=== PATIENT | male | born 2000 | race Caucasian/White ===

== ENCOUNTER 2022-04-02 14:43 | Emergency (ER) | payer OTHER, MEDICAID, SELFPAY ==
[2022-04-02 15:13] VITALS: BP 164/97; PULSE 95; RESP 16; TEMP 36.5; O2SAT 98; BMI 32.9
--- NOTE | 2022-04-02 15:23 | DI.RAD.S_ITS ---
PROCEDURE: XR ACUTE ABDOMEN SERIES INDICATIONS: abd pain TECHNIQUE: One view chest and two views of the abdomen were acquired. COMPARISON: None. FINDINGS: Surgical changes and devices: None. Chest: Lungs are clear. Heart size is normal. No pleural effusions. No pneumoperitoneum. Abdomen: Bowel gas pattern is normal. No suspicious calcifications. Visualized solid organ contours appear normal. Bones: No suspicious bony lesions. IMPRESSION: A nonobstructive bowel gas pattern is seen. If clinically appropriate, please consider a repeat plain film study or a dedicated CT of the abdomen and pelvis, if the patient's symptoms persist or worsen. Dictated by: Pedro Petty M.D. on 04/02/2022 at 14:50 Approved by: Pedro Petty M.D. on 04/02/2022 at 14:50
[2022-04-02] MEDS: ONDANSETRON 4 MG/2 ML INJ IV (15:30)
[2022-04-02] MEDS: SODIUM CHLORIDE 0.9% 1,000 ML 1000 ML IV (15:31)
[2022-04-02 15:47] LABS: Alanine Aminotransferase 83 IU/L (<50); Albumin 4.8 g/dL (3.5-5.0); Albumin Globulin Ratio 1.6 (1.0-2.8); Alkaline Phosphatase 50 U/L (38-126); Aspartate Aminotransferase 50 IU/L (17-59); BUN Creatinine Ratio 8.3 (6-22); Bilirubin Total 1.3 mg/dL (0.2-1.3); Blood Urea Nitrogen 8 mg/dL (9-20); Calcium 9.3 mg/dL (8.4-10.2); Carbon Dioxide 29 mmol/L (22-32); Chloride 100 mmol/L (98-107); Estimated Glomerular Filt Rate > 60 mL/min (>60); Glucose 100 mg/dL (70-100); HEMOLYSIS 26 (0-50); Lipase 119 U/L (23-300); Potassium 3.5 mmol/L (3.4-5.1); Sodium 141 mmol/L (137-145); Total Protein 7.8 g/dL (6.3-8.2)
[2022-04-02 15:49] LABS: Add Manual Diff / Slide Review NO; Basophils Absolute Auto 100 /uL (0-100); Basophils Percent Auto 0.6 % (0-2); Eosinophils Absolute Auto 100 /uL (0-450); Eosinophils Percent Auto 0.9 % (2-4); Hematocrit 46.5 % (41-53); Lymphocytes Absolute Auto 1700 /uL (1100-4500); Lymphocytes Percent Auto 18.7 % (25-40); Mean Corpuscular HGB Conc 34.5 % (30-36); Mean Corpuscular Volume 84.1 fL (80-100); Monocytes Absolute Auto 500 /uL (0-900); Monocytes Percent Auto 5.3 % (3-14); Neutrophils Absolute Auto 6600 /uL (1500-7000); Neutrophils Percent Auto 74.5 % (50-75); Platelet Count 227 X10^3/uL (150-400); Red Blood Cell Count 5.53 X10^6/uL (4.5-5.9); Red Cell Distribution Width 12.9 % (11.6-14.8); White Blood Cell Count 8.9 X10^3/uL (4.5-11.0)
[2022-04-02 15:55] VITALS: BP 150/99; PULSE 81; PULSE 88; RESP 16; O2SAT 100; O2SAT 99
[2022-04-02 16:00] VITALS: BP 136/97; PULSE 66; O2SAT 100
--- NOTE | 2022-04-02 16:13 | DI.US.S_ITS ---
PROCEDURE: US RENAL COMPLETE INDICATIONS: LEFT FLANK PAIN TECHNIQUE: Real-time scanning was performed of the kidneys and bladder, with image documentation. COMPARISON: [facility], CR, XR ACUTE ABDOMEN SERIES, 04/02/2022, 15:24. FINDINGS: Kidneys: Kidneys are normal in size. Right kidney measures 11.1 cm long; left kidney measures 11.9 cm long. Right renal cortical thickness is 1.8 cm; left renal cortical thickness is 1.9 cm. Renal cortical echotexture is normal. No hydronephrosis or nephrolithiasis. No suspicious solid mass lesions. Bladder: Pre-void bladder volume is 376 mL. Post-void residual is 0 mL. Pre-void images demonstrate no intraluminal masses or stones. On pre-void images, both ureteral jets are noted with color Doppler interrogation. (Of note, ureteral jets may not be detectable in up to 25% of cases due to insufficient differences in specific gravity between ureteral and bladder urine). Miscellaneous: No free pelvic fluid. IMPRESSION: Negative for hydronephrosis. Normal appearing kidneys by ultrasound. Dictated by: Pedro Petty M.D. on 04/02/2022 at 16:13 Approved by: Pedro Petty M.D. on 04/02/2022 at 16:13
--- NOTE | 2022-04-02 16:15 | ED.ABDPAIN ---
HPI - Abdominal Pain <PASCUAL Corral - Last Filed: 04/02/22 17:41> General Chief Complaint: Abdominal Pain Stated Complaint: Low back pain, nausea, vomiting Time Seen by Provider: 04/02/22 15:58 Source: patient Mode of arrival: Ambulatory History of Present Illness HPI narrative: 21-year-old male was brought to the emergency department with left flank pain on and off x3 days. Patient primarily sits in a huong chair at home and plays video games, while drinking energy drinks. Patient was experiencing significant left flank pain 3 days ago and treated himself with a ibuprofen. Patient reports he felt better on the following morning. Patient reports that when he woke up the following day, he had the same stabbing pain in his left flank. Patient used a lidocaine patch and took more ibuprofen. Patient's symptoms were severe enough this morning that he went into the [facility] walk-in clinic where he was given an injection of Toradol and sent to this emergency department. Patient has vomited 2-3 times over last few days because of the pain. No personal history of kidney stones. Patient reports that pain was 7/10 before he received the Toradol injection and is now 1/10. Related Data Previous Rx's Medication Instructions Recorded tamsulosin 0.4 mg capsule (Flomax) 0.4 mg PO DAILY 7 days #7 caps 04/02/22 Allergies Allergy/AdvReac Type Severity Reaction Status Date / Time nut - unspecified Allergy Gastrointestinal Verified 04/02/22 15:13 Upset Review of Systems <PASCUAL Corral - Last Filed: 04/02/22 17:41> Review of Systems Narrative: Narrative: See HPI. GENERAL: Denies chills, fatigue, fever, sweats. HEENT: Denies sinus pain, ear pain, sore throat, difficulty swallowing, dizziness. RESPIRATORY: Denies dyspnea, cough, wheezing, sputum. CARDIOVASCULAR: Denies chest pain, palpitations, edema. GASTROINTESTINAL: Denies nausea, vomiting, abdominal pain, diarrhea, constipation. : Denies dysuria, frequency, incontinence, hematuria, urinary retention, loss of control of bowel or bladder.. Endorses left flank pain. MSK: Denies weakness, joint pain, or bony pain. SKIN: Denies rash, skin lesions, or pruritis. NEUROLOGIC: Denies weakness, dizziness, headache, numbness, confusion. PSYCHIATRIC: No concerning psychosocial issues. Patient History <PASCUAL Corral - Last Filed: 04/02/22 17:41> Social History Smoking Status: Never smoker Smoking Status: Never smoker alcohol intake frequency: holidays/special occasions only Substance Use Type: does not use Exam <PASCUAL Corral - Last Filed: 04/02/22 17:41> Narrative Exam Narrative: Exam Narrative: GENERAL: This is a well-nourished, well-developed patient, in no acute distress. HEAD: Atraumatic. Normocephalic. CARDIOVASCULAR: Regular rate and rhythm without murmurs, peripheral pulses intact, cap refill <2 sec. RESPIRATORY: Breath sounds equal and clear bilaterally. No wheezes, rales, or rhonchi. No cough. No increased respiratory effort. No accessory muscle use. GASTROINTESTINAL: Abdomen soft, non-tender, nondistended without guarding or rebound. No suprapubic pain. MSK: Moves all extremities. Normal range of motion, no clubbing or edema. Neurovascularly intact. Mild left lower back discomfort. No CVA tenderness. NEURO: A&O x 3. SKIN: Warm, dry, no rashes or lesions noted. BACK waterproof coating machine tender but free of any obvious external abnormalities. There is no asymmetry, swelling, bruising or wound. There is no paraspinal tenderness or CVA tenderness. SI joints nontender. No pain over spinous processes. No symptoms of cauda equina such as saddle anesthesia. Sensation is grossly intact. ROM is full and without pain. SLE is negative bilaterally. Gait is normal. hesia. Initial Vital Signs Initial Vital Signs: Vital Signs Temperature 97.7 F 04/02/22 15:13 Pulse Rate 95 H 04/02/22 15:13 Respiratory Rate 16 04/02/22 15:13 Blood Pressure 164/97 H 04/02/22 15:13 Pulse Oximetry 98 04/02/22 15:13 Oxygen Delivery Method 04/02/22 15:13 Reviewed <Yaima Stephen DO - Last Filed: 04/03/22 18:39> Initial Vital Signs Initial Vital Signs: Vital Signs Temperature 97.7 F 04/02/22 15:13 Pulse Rate 95 H 04/02/22 15:13 Respiratory Rate 16 04/02/22 15:13 Blood Pressure 164/97 H 04/02/22 15:13 Pulse Oximetry 98 04/02/22 15:13 Oxygen Delivery Method 04/02/22 15:13 Course <PASCUAL Corral - Last Filed: 04/02/22 17:41> Orders Ordered: Discontinued Medications Sodium Chloride (Normal Saline 0.9%) 1,000 mls @ 1,000 mls/hr IV BOLUS ONE Stop: 04/02/22 16:22 Last Infusion: 04/02/22 16:43 Dose: 0 mls/hr Documented By: Admin: 04/02/22 15:31 Dose: 1,000 mls/hr Documented By: JENY Ondansetron HCl (Ondansetron 4 Mg/2 Ml Inj) 4 mg IV NOW PRN PRN Reason: Nausea And Vomiting Last Admin: 04/02/22 15:30 Dose: 4 mg Documented By: JENY Ondansetron HCl (Ondansetron 4 Mg Odt) 4 mg PO NOW PRN PRN Reason: Nausea And Vomiting Vital Signs Vital signs: Vital Signs - 8 hr 04/02/22 15:13 04/02/22 15:55 04/02/22 15:55 Temperature 97.7 F Pulse Rate 95 H 88 81 Respiratory Rate 16 16 Blood Pressure 164/97 H 150/99 H Pulse Oximetry 98 99 100 Oxygen Delivery Method Room Air Room Air 04/02/22 16:00 04/02/22 16:00 04/02/22 16:31 Temperature Pulse Rate 66 77 Respiratory Rate Blood Pressure 136/97 H Pulse Oximetry 100 97 Oxygen Delivery Method Room Air Room Air 04/02/22 16:31 04/02/22 17:00 Temperature Pulse Rate 71 Respiratory Rate Blood Pressure 140/91 H Pulse Oximetry 97 Oxygen Delivery Method Room Air <Yaima Stephen DO - Last Filed: 04/03/22 18:39> Orders Ordered: Discontinued Medications Sodium Chloride (Normal Saline 0.9%) 1,000 mls @ 1,000 mls/hr IV BOLUS ONE Stop: 04/02/22 16:22 Last Infusion: 04/02/22 16:43 Dose: 0 mls/hr Documented By: Admin: 04/02/22 15:31 Dose: 1,000 mls/hr Documented By: RL Ondansetron HCl (Ondansetron 4 Mg/2 Ml Inj) 4 mg IV NOW PRN PRN Reason: Nausea And Vomiting Last Admin: 04/02/22 15:30 Dose: 4 mg Documented By: JENY Ondansetron HCl (Ondansetron 4 Mg Odt) 4 mg PO NOW PRN PRN Reason: Nausea And Vomiting Vital Signs Vital signs: Vital Signs - 8 hr 04/02/22 15:13 04/02/22 15:55 04/02/22 15:55 Temperature 97.7 F Pulse Rate 95 H 88 81 Respiratory Rate 16 16 Blood Pressure 164/97 H 150/99 H Pulse Oximetry 98 99 100 Oxygen Delivery Method Room Air Room Air 04/02/22 16:00 04/02/22 16:00 04/02/22 16:31 Temperature Pulse Rate 66 77 Respiratory Rate Blood Pressure 136/97 H Pulse Oximetry 100 97 Oxygen Delivery Method Room Air Room Air 04/02/22 16:31 04/02/22 17:00 Temperature Pulse Rate 71 Respiratory Rate Blood Pressure 140/91 H Pulse Oximetry 97 Oxygen Delivery Method Room Air MDM - Abdominal Pain <PASCUAL Corral - Last Filed: 04/02/22 17:41> Differential Diagnosis Differential diagnosis: Likely calculus of kidney and other (Low back strain) Lab Data 04/02/22 15:25 04/02/22 15:25 Labs: Lab Results 04/02/22 04/02/22 04/02/22 Range/Units 15:25 15:25 16:32 WBC 8.9 (4.5-11.0) X10^3/uL RBC 5.53 (4.5-5.9) X10^6/uL Hgb 16.0 (13.5-17.5) g/dL Hct 46.5 (41-53) % MCV 84.1 (80-100) fL MCH 29.0 (26-34) PG MCHC 34.5 (30-36) % RDW 12.9 (11.6-14.8) % Plt Count 227 (150-400) X10^3/uL Neut % (Auto) 74.5 (50-75) % Lymph % (Auto) 18.7 L (25-40) % Heard % (Auto) 5.3 (3-14) % Eos % (Auto) 0.9 L (2-4) % Baso % (Auto) 0.6 (0-2) % Neut # (Auto) 6600 (3212-6491) /uL Lymph # (Auto) 1700 (8620-0674) /uL Heard # (Auto) 500 (0-900) /uL Eos # (Auto) 100 (0-450) /uL Baso # (Auto) 100 (0-100) /uL Sodium 141 (137-145) mmol/L Potassium 3.5 (3.4-5.1) mmol/L Chloride 100 (98-107) mmol/L Carbon Dioxide 29 (22-32) mmol/L BUN 8 L (9-20) mg/dL Creatinine 0.96 (0.66-1.25) mg/dL Estimated GFR > 60 (>60) mL/min BUN/Creatinine Ratio 8.3 (6-22) Glucose 100 (70-100) mg/dL Calcium 9.3 (8.4-10.2) mg/dL Total Bilirubin 1.3 (0.2-1.3) mg/dL AST 50 (17-59) IU/L ALT 83 H (<50) IU/L Alkaline Phosphatase 50 (38-126) U/L Total Protein 7.8 (6.3-8.2) g/dL Albumin 4.8 (3.5-5.0) g/dL Globulin 3.0 (1.7-4.1) g/dL Albumin/Globulin Ratio 1.6 (1.0-2.8) Lipase 119 (23-300) U/L Urine RBC 5-10/hpf H (0-5/HPF) Urine WBC 0-1/hpf (0-5/HPF) Ur Squamous Epith Cells 0-1 /hpf (0-5/HPF) Urine Bacteria None seen (None) Ur Culture Indicated? Cult not indicated Point of care testing: Urine Dip Bedside Urine Glucose Negative Bedside Urine Bilirubin - Negative Bedside Urine Ketone - Negative Urine Specific [place] 1.010 Bedside Urine Occult Blood +++ Bedside Urine pH 7.0 Bedside Urine Protein - Negative Bedside Urine Urobilinogen - Negative Bedside Urine Nitrite - Negative Bedside Urine Leukocytes - Negative Esterase Imaging Data Abdominal x-ray: Radiologist's Impression: [address] [address] XRay Report Signed Patient: Abisai Peng MR#: [id number] : 2000 Acct:[id number] Age/Sex: 21 / M Date of Service: 04/02/22 Loc: ED Accession Number: [id number] ?? Procedure: XR acute abdomen series Ordering Provider: Yaima Stephen D.O. PROCEDURE:? XR ACUTE ABDOMEN SERIES ? INDICATIONS:? abd pain ? TECHNIQUE:? One view chest and two views of the abdomen were acquired.? ? COMPARISON:? None. ? FINDINGS:? ? Surgical changes and devices:? None.? ? Chest:? Lungs are clear.? Heart size is normal.? No pleural effusions.? No pneumoperitoneum.? ? Abdomen:? Bowel gas pattern is normal.? No suspicious calcifications.? Visualized solid organ contours appear normal.? ? Bones:? No suspicious bony lesions.? IMPRESSION:? A nonobstructive bowel gas pattern is seen. ? If clinically appropriate, please consider a repeat plain film study or a dedicated CT of the abdomen and pelvis, if the patient's symptoms persist or worsen. ? ? ? Dictated by: Pedro Petty M.D. on 04/02/2022 at 14:50 ? ? Approved by: Pedro Petty M.D. on 04/02/2022 at 14:50 ? US Renal: Radiologist's Impression: [place] [address] Ultrasound Report Signed Patient: Abisai Peng MR#: [id number] : 2000 Acct:[id number] Age/Sex: 21 / M Date of Service: 04/02/22 Loc: ED Accession Number: [id number] ?? Procedure: US renal complete Ordering Provider: Matthew King PROCEDURE:? US RENAL COMPLETE ? INDICATIONS:? LEFT FLANK PAIN ? TECHNIQUE:? Real-time scanning was performed of the kidneys and bladder, with image documentation.? ? COMPARISON:? [facility], CR, XR ACUTE ABDOMEN SERIES, 04/02/2022, 15:24. ? FINDINGS:? ? Kidneys:? Kidneys are normal in size.? Right kidney measures 11.1 cm long; left kidney measures 11.9 cm long.? Right renal cortical thickness is 1.8 cm; left renal cortical thickness is 1.9 cm.? Renal cortical echotexture is normal.? No hydronephrosis or nephrolithiasis.? No suspicious solid mass lesions.? ? Bladder:? Pre-void bladder volume is 376 mL.? Post-void residual is 0 mL.? Pre-void images demonstrate no intraluminal masses or stones.? On pre-void images, both ureteral jets are noted with color Doppler interrogation.? (Of note, ureteral jets may not be detectable in up to 25% of cases due to insufficient differences in specific gravity between ureteral and bladder urine).? ? Miscellaneous:? No free pelvic fluid.? ? IMPRESSION:? Negative for hydronephrosis. ? Normal appearing kidneys by ultrasound. ? ? Dictated by: Pedro Petty M.D. on 04/02/2022 at 16:13 ? ? Approved by: Pedro Petty M.D. on 04/02/2022 at 16:13 ? MDM Narrative Medical decision making narrative: 21-year-old male was brought to the emergency department with left lower back pain. Assessment was encouraging. Abdominal x-ray was normal. Renal ultrasound revealed no stones or hydronephrosis. Point of care urine dip revealed 3+ blood. Suspect patient may have a low back strain but possibly a lingering kidney stone. Will treat patient with Flomax and NSAIDs, for treatment of both. Discussed plan of care and return precautions with patient and mother, who verbalized understanding and were agreeable with course of action. Consideration included that injury was non-traumatic, patient is not a IV drug user, no fever, neurovascular intact, no weakness, no signs of epidural abscess or saddle anest <Yaima Stephen, DO - Last Filed: 04/03/22 18:39> Lab Data Labs: Lab Results 04/02/22 04/02/22 04/02/22 Range/Units 15:25 15:25 16:32 WBC 8.9 (4.5-11.0) X10^3/uL RBC 5.53 (4.5-5.9) X10^6/uL Hgb 16.0 (13.5-17.5) g/dL Hct 46.5 (41-53) % MCV 84.1 (80-100) fL MCH 29.0 (26-34) PG MCHC 34.5 (30-36) % RDW 12.9 (11.6-14.8) % Plt Count 227 (150-400) X10^3/uL Neut % (Auto) 74.5 (50-75) % Lymph % (Auto) 18.7 L (25-40) % Heard % (Auto) 5.3 (3-14) % Eos % (Auto) 0.9 L (2-4) % Baso % (Auto) 0.6 (0-2) % Neut # (Auto) 6600 (9243-9246) /uL Lymph # (Auto) 1700 (8860-6098) /uL Heard # (Auto) 500 (0-900) /uL Eos # (Auto) 100 (0-450) /uL Baso # (Auto) 100 (0-100) /uL Sodium 141 (137-145) mmol/L Potassium 3.5 (3.4-5.1) mmol/L Chloride 100 (98-107) mmol/L Carbon Dioxide 29 (22-32) mmol/L BUN 8 L (9-20) mg/dL Creatinine 0.96 (0.66-1.25) mg/dL Estimated GFR > 60 (>60) mL/min BUN/Creatinine Ratio 8.3 (6-22) Glucose 100 (70-100) mg/dL Calcium 9.3 (8.4-10.2) mg/dL Total Bilirubin 1.3 (0.2-1.3) mg/dL AST 50 (17-59) IU/L ALT 83 H (<50) IU/L Alkaline Phosphatase 50 (38-126) U/L Total Protein 7.8 (6.3-8.2) g/dL Albumin 4.8 (3.5-5.0) g/dL Globulin 3.0 (1.7-4.1) g/dL Albumin/Globulin Ratio 1.6 (1.0-2.8) Lipase 119 (23-300) U/L Urine RBC 5-10/hpf H (0-5/HPF) Urine WBC 0-1/hpf (0-5/HPF) Ur Squamous Epith Cells 0-1 /hpf (0-5/HPF) Urine Bacteria None seen (None) Ur Culture Indicated? Cult not indicated Point of care testing: Urine Dip Bedside Urine Glucose Negative Bedside Urine Bilirubin - Negative Bedside Urine Ketone - Negative Urine Specific [place] 1.010 Bedside Urine Occult Blood +++ Bedside Urine pH 7.0 Bedside Urine Protein - Negative Bedside Urine Urobilinogen - Negative Bedside Urine Nitrite - Negative Bedside Urine Leukocytes - Negative Esterase Discharge Plan Departure Patient Disposition: Home Clinical Impression: Low back strain, Kidney stone Instructions: DI for Kidney Stones, DI for Back Strain or Sprain Activity Restrictions/Additional Instructions: *You have been diagnosed with a low back strain with a possibility of a lingering kidney stone. Your x-ray and ultrasound did not reveal any kidney stones. I recommend you increase your water intake and limit your soda/energy drink ingestion. You should be drinking 64 oz of water each day. I will prescribe some Flomax that will help in evacuating a kidney stone, if it is present. You may take 600 mg of ibuprofen 3 times a day with food for lingering low back pain. For any worsening symptoms that include chest pain, shortness of breath, intolerable pain, etc. please return to the emergency department. Otherwise, please follow-up with your family doctor as needed. *What to do: *Please continue to take your regular medications as directed. [x ] New medication prescriptions sent to your pharmacy: [[facility] in [place]] [ ] New medication written as a paper prescription [ x] No new medications given *Please follow up with your primary care provider in 2-3 days, call for an appointment. Let them know you were seen in the Emergency Department and that we ask that you be seen in follow up. We will electronically transmit a record of today's note if your PCP is in our system *If you do not have a primary care provider please contact the [facility] Resource line at [phone]. They will ask some questions about your medical history and help get you set up with a doctor in the community. ? Return to ER if you should have any new, worsening or concerning symptoms, such as worsening pain, severe headache, confusion, chest pain, difficulty breathing, fever greater than 101 F, shaking chills, persistent vomiting to the point that you cannot drink fluids, or other new or worsening symptoms. Prescriptions: New tamsulosin [Flomax] 0.4 mg capsule 0.4 mg PO DAILY 7 Days Qty: 7 0RF Stand Alone Forms: Patient Portal/API <Yaima Stephen, DO - Last Filed: 04/03/22 18:39> Cosign ED Attending Cosignature Attestation: I was immediately available in the department for consultation. Documentation has been reviewed.
[2022-04-02 16:31] VITALS: BP 140/91; PULSE 77; O2SAT 97
[2022-04-02 17:00] VITALS: PULSE 71; O2SAT 97
[2022-04-02 17:00] LABS: Bacteria Urine None Seen; Culture Indicated Urine Cult Not Indicated; RBC Urine 5-10/HPF (0-5/HPF); Squamous Epithelial Cell Urine 0-1 /HPF (0-5/HPF); WBC Urine 0-1/HPF (0-5/HPF)
[2022-04-02 17:30] VITALS: PULSE 70; O2SAT 97
== END 2022-04-02 17:52 | disposition home or self-care (01) ==
PROVIDERS: Emergency Medicine; Emergency Provider Registered Nurse
DX: S39.012A Strain of muscle, fascia and tendon of lower back, initial encounter (principal); N20.0 Calculus of kidney
CPT/HCPCS: 36415; 74022; 76770; 80053; 81003; 81015; 83690; 85025; 96361; 96374; 99284; J2405